=== PATIENT | female | born 1960 | race Caucasian/White ===

== ENCOUNTER → 2018-08-11 12:34 | Outpatient (CLI) | payer OTHER, SELFPAY ==
--- NOTE | 2018-08-11 12:35 | DI.MRI.S_ITS ---
PROCEDURE: MR HEAD/BRAIN WO CON INDICATIONS: Change in migraine headache history TECHNIQUE: Noncontrast axial T1 spin echo, axial T2 fast spin echo, sagittal and axial FLAIR, coronal T2 fast spin echo, axial gradient echo, axial diffusion and ADC through the brain. COMPARISON: None. FINDINGS: Image quality: Excellent. CSF Spaces: Basal cisterns are patent. No extra-axial fluid collections. Ventricles are normal in size and shape. Brain: No intracranial masses or hemorrhage. Ratliff/white matter interface is normal. Brainstem appears normal. Diffusion-weighted images demonstrate no acute ischemic insult. No chronic ischemic insults. Normal intravascular flow voids are present. Punctate hypointensity on gradient sequence within the left frontal lobe likely related to a small cavernous angioma. Skull and face: Calvarium has normal marrow signal. Orbits appear normal. Sinuses: Sinuses and mastoids are clear. IMPRESSION: 1. No acute intracranial process. Dictated by: Shabana Child M.D. on 08/11/2018 at 14:26 Approved by: Shabana Child M.D. on 08/11/2018 at 14:29
== END ==
PROVIDERS: PCP Family Medicine; Visit Provider Family Medicine
DX: G43.009 Migraine without aura, not intractable, without status migrainosus (principal)
CPT/HCPCS: 70551